=== PATIENT | female | born 1925 | race Caucasian/White ===

== ENCOUNTER → 2016-04-09 | Outpatient (CLI) | payer OTHER, MEDICARE ==
--- NOTE | 2016-04-09 18:41 | DX ---
PA and Lateral Chest - April 09, 2016, at 1421 hours Indication: Cough and weakness Comparison: Two-view chest dated December 08, 2013. Findings: The mildly hyperinflated lungs and diffuse mild peribronchial thickening are unchanged sinc e 2014. No pneumothorax, pulmonary nodule, consolidation, edema or effusion has developed. Heart size remains normal. Surgical clips in the left axilla and right shoulder arthroplasty are unchanged. Impression: 1. No acute pneumonia or edema. 2. Chronic airways disease and mild hyperinflation similar to 2014.
== END ==
LOC: CIMAGING 14:03
PROVIDERS: ATTEND Family Medicine
DX: R05 Cough (principal); R53.1 Weakness
CPT/HCPCS: 71020-PO

== ENCOUNTER → 2016-06-05 | Outpatient (CLI) | payer OTHER, MEDICARE | LOC: CIMAGING 10:55 | DX: Z12.31 Encounter for screening mammogram for malignant neoplasm of breast (principal); Z85.3 Personal history of malignant neoplasm of breast | CPT/HCPCS: G0202 ==

== ENCOUNTER → 2016-10-15 | Outpatient (CLI) | payer OTHER, MEDICARE | LOC: FIMAGING 10:18 | PROVIDERS: ATTEND Internal Medicine Hematology & Oncology | DX: M54.6 Pain in thoracic spine (principal); I71.4 Abdominal aortic aneurysm, without rupture; Z85.3 Personal history of malignant neoplasm of breast ==

== ENCOUNTER → 2017-09-24 | Outpatient (CLI) | payer OTHER, MEDICARE | LOC: CIMAGING 10:34 | PROVIDERS: ATTEND Physician Assistant Medical | DX: J44.9 Chronic obstructive pulmonary disease, unspecified (principal); I71.4 Abdominal aortic aneurysm, without rupture; R93.7 Abnormal findings on diagnostic imaging of other parts of musculoskeletal system; Z96.643 Presence of artificial hip joint, bilateral | CPT/HCPCS: 71046-PO; 73551-PO ==